=== PATIENT | female | born 1960 | race Caucasian/White ===

== ENCOUNTER → 2016-11-26 16:41 | Outpatient (CLI) | payer MEDICAID | END | disposition home or self-care (01) | LOC: D.MAMMO 08:15 | DX: Z12.31 Encounter for screening mammogram for malignant neoplasm of breast (principal) ==

== ENCOUNTER 2016-12-24 10:46 | Day surgery (SDC) | payer MEDICAID ==
[~2016-12-24] VITALS: Ht 157.5 cm; Wt 131.8 kg
[2016-12-24] MEDS ORDERED: HCTZ25 MG PO (11:41)
[2016-12-24] MEDS ORDERED: CELEXA20 MG PO (11:42)
[2016-12-24] MEDS ORDERED: MINOCIN100 MG PO (11:42)
[2016-12-24] MEDS ORDERED: ADIPEX-P37.5 M1 PO (11:43)
[2016-12-24] MEDS ORDERED: ZANTAC150 MG PO (11:43)
[2016-12-24] MEDS ORDERED: VITAMIN D250000 UNIT PO (11:43)
[2016-12-24] MEDS ORDERED: VICTOZA0.6 MG/0.1 SQ (11:44)
[2016-12-24] MEDS ORDERED: NAPROSYN500 MG PO (11:44)
[2016-12-24 11:45] VITALS: BP 119/75; Ht 157.5 cm; Wt 131.8 kg
[2016-12-24] MEDS ORDERED: PROPRANOLOL HCL20 MG PO (11:57)
== END 2016-12-24 15:05 | disposition home or self-care (01) ==
LOC: D.OPS 10:46
DX: Z12.11 Encounter for screening for malignant neoplasm of colon (principal); J45.909 Unspecified asthma, uncomplicated; I10 Essential (primary) hypertension; K21.9 Gastro-esophageal reflux disease without esophagitis; E66.01 Morbid (severe) obesity due to excess calories; Z68.43 Body mass index [BMI] 50.0-59.9, adult; Z01.812 Encounter for preprocedural laboratory examination

== ENCOUNTER → 2017-02-22 16:43 | Outpatient (CLI) | payer MEDICAID ==
[2016-12-24 11:45] VITALS: BMI 53.2
[~2017-02-22 16:43] MED LIST: ADIPEX-P37.5 M1 PO; CELEXA20 MG PO; HCTZ25 MG PO; MINOCIN100 MG PO; NAPROSYN500 MG PO; PROPRANOLOL HCL20 MG PO; VICTOZA0.6 MG/0.1 SQ; VITAMIN D250000 UNIT PO; VITAMIN D5000 UNIT PO; XARELTO20 MG PO; ZANTAC150 MG PO
[2017-02-22 17:35] LABS: T4 THYROXINE 7.9 ug/dL (4.7-13.3); THYROID STIMULATING HORMONE 2.03 uIU/mL (0.36-3.74)
== END | disposition home or self-care (01) ==
LOC: D.LABREF 16:43
PROVIDERS: Internal Medicine Cardiovascular Disease
DX: I10 Essential (primary) hypertension (principal); I48.91 Unspecified atrial fibrillation

== ENCOUNTER → 2017-02-23 09:17 | Outpatient (CLI) | payer MEDICAID ==
[2016-12-24 11:45] VITALS: BMI 53.2
--- NOTE | 2017-03-01 09:02 | EC ---
PATIENT:ABDIFATAH WASHINGTON DATE OF SERVICE: 02/23/17 SEX: F MEDICAL RECORD: [id number] DATE OF : 56 LOCATION:D.[facility], LATER [facility] AGE OF PATIENT: 56 ADMISSION DATE: 02/23/17 REFERRING PHYSICIAN: INTERPRETING PHYSICIAN: PRINCESS MCLEOD MD ECHOCARDIOGRAM REPORT ECHO CHARGES 4 ECHO COMPLETE CLINICAL DIAGNOSIS: ATRIAL FIB/HTN/PERICARDIAL PAIN ECHOCARDIOGRAPHIC MEASUREMENTS (adult normal given) AC root (d.<3.7cm) 3.2 cm LV Septum d (<1.2 cm> 1.6 cm Valve Excursion 1.7 cm LV Septum (systole) 1.9 cm Left Atria (s.<4.0cm> 3.5 cm LVPW d(<1.2cm) 1.7 cm RV (d.<2.3cm) 3.9 cm LVPW (sytole) 1.9 cm LV diastole(<5.6CM) 4.1 cm MV E-F(>70mm/sec) cm LV systole 2.6 cm LVOT Diameter 1.8 cm MV exc.(>10mm) 1.8 cm Est.ejection fraction (50-75%) % Pericardial Effusion N DOPPLER: LVIT cm/sec A 130 cm/sec E cm/sec LA cm/sec RVSP 17 mmHg LVOT 96 cm/sec AOP1/2T m/s Asc. Ao 147 cm/sec RVOT 96 cm/sec RA cm/sec PA 138 cm/sec AV Gradient Peak 8.69 mmHg AV Mean 5.00 mmHg AV Area 1.5 cm MV Gradient Peak 10.43mmHg MV Mean 3.84 mmHg MV Area cm COMMENTS: Cnc Mill Set Up Operator: Batsheva GARCIA Glue Specialty Supervisor: Dario Fowler TAPE# PACS DATE OF SERVICE: 02/23/2017 PROCEDURE: Echocardiogram. FINDINGS: 1. Left ventricle chamber size is within normal limits. Left ventricular systolic function is normal. Overall ejection fraction is estimated at 55%. 2. Left atrium is within normal limits at 3.5 cm. Right atrium and right ventricular chamber sizes are mildly dilated. 3. Valvular structures have normal structure and motion. ECHOCARDIOGRAM REPORT [id number] ABDIFATAH WASHINGTON EARL 4. Doppler interrogation only reveals trace mitral regurgitation, trace tricuspid regurgitation. No other valvular insufficiency or stenosis. 5. No evidence of pericardial effusion or left ventricular thrombus. 6. The patient is in atrial flutter during the study. TRANSINT:[id number] Voice Confirmation ID: [id number] DOCUMENT ID: [id number] PRINCESS MCLEOD MD at 0902 CC: [id number] DICTATION DATE: 02/24/17 1119 ETHYLENE PLANT OPERATOR: 02/24/17 1127 DEP CLI 02/23/[address] [address]
== END | disposition home or self-care (01) ==
LOC: D.ECHO 02-22 10:30
DX: I48.91 Unspecified atrial fibrillation (principal); R07.2 Precordial pain; I10 Essential (primary) hypertension

== ENCOUNTER 2017-04-15 07:12 | Outpatient (CLI) | payer MEDICAID ==
[~2017-04-15] VITALS: Ht 157.5 cm; Wt 129.5 kg
--- NOTE | ~2017-04-15 | TEE ---
PATIENT:ABDIFATAH WASHINGTON MEDICAL RECORD: [id number] LOCATION:D.[facility] AGE OF PATIENT: 56 ADMISSION DATE: 04/15/17 SEX: F REFERRING PHYSICIAN: INTERPRETING PHYSICIAN: RADHA LUGO MD TRANSESOPHAGEAL ECHOCARDIOGRAM AKANKSHA CHARGE Y INDICATIONS: AFIB/ ASSESS FOR CLOT PREMEDICATIONS: PATIENT'S RESPONSE PROCEDURE DOPPLER MEASUREMENTS: LVIT LA PA RA LVOT RVOT Asc. Ao AV Gradient Peak AV Mean AV Area MV Gradient Peak MV Mean MV Area INTERPRETATION: Doppler: 2-D: CLOT NOTED IN LA APPENDAGE COLOR FLOW DOPPLER NORMAL SALINE STUDY: MISCELLANOUS: DIAGNOSIS: PLAN: Sports Information Director:Dario Lugo Drafter Commercial: Batsheva GARCIA COMMENTS: DATE OF SERVICE: 04/15/2017 PROCEDURE: Transesophageal echocardiogram. This is also transcribed already on the computer system; however, the AKANKSHA was performed and there was left atrial appendage thrombus seen. Please see the online report for full details. TRANSINT:[id number] Voice Confirmation ID: [id number] DOCUMENT ID: [id number] TRANSESOPHAGEAL ECHOCARDIOGRAM REPORT [id number] ABDIFATAH WASHINGTON at 1038 CC: [id number] DICTATION DATE: 04/16/17 0840 PROPOSAL DEVELOPMENT MANAGER: 04/16/17 1214 [facility] CLI 04/15/17 [place] [place] [address]
--- NOTE | ~2017-04-15 | HEMODYNAMI ---
PATIENT:ABDIFATAH WASHINGTON MEDICAL RECORD: [id number] : 56 LOCATION:D.[facility] ADMISSION DATE: 04/15/17 Generatedon:04/15/201710:02 Patient name: ABDIFATAH WASHINGTON Patient #: [id number] SSN: : 1960 Date of study: 04/15/2017 Page: Of Hemodynamic Procedure Report Patient Data Patient Demographics Procedure consent was obtained First Name: ABDIFATAH Gender: Female Last Name: PADMINI : 1960 [facility] Initial: EARL Age: 56 year(s) Patient #: [id number] Race: Unknown Additional ID: [id number] Contact details [address]: [address] [place] [address] State: [place] City: [place] Zip code: [address] Past Medical History Allergies: No known allergies Admission Admission Data Admission Date: 04/15/2017 Admission Time: 7:12 Procedure Procedure Types Cath Procedure Diagnostic Procedure AKANKSHA Procedure Description Procedure Date Procedure Date: 04/15/2017 Procedure Start Time: 9:24 Procedure Staff Name Function Virgil Fowler MD Performing Physician Melba Manjarrez RT Monitor Aman Palmer RN Nurse Rainer Gama MD Additional personnel Won Olmedo Handicrafts Teacher Nieves Guerrier RT Fountain Clerk Procedure Data Procedure Complications No complications Procedure Medications Medication Administration Route Dosage 0.9% NaCl I.V. 100 ml/hr Oxygen NC 3 l/min Refer to Anesthesia Notes for Sedation Medications unlisted medication 30 ml unlisted medication Hemodynamics Rest Heart Rate: 93 (bpm) Snapshots Pre Cath Intra NCS Post Cath Vital Signs Time Heart Resp SPO2 etCO2 NIBP (mmHg) Rhythm Pain Sedation Rate (ipm) (%) (mmHg) Status Level (bpm) 9:51:50 98 12 100 30.5 122/90(108) NSR 0 (11) 10(A) , No pain 9:55:27 84 10 98 36.5 143/92(109) NSR 0 (11) 9(A) , No pain 9:57:28 82 31 100 36.5 138/79(106) NSR 0 (11) 10(A) , No pain Medications Time Medication Route Dose Verified Delivered Reason Notes Effectivene ss by by 9:51:21 Refer to Aman Newton for Anesthesia Spencer Palmer sedation Notes for RN RN Sedation Medications 9:52:07 0.9% NaCl I.V. 100 Aman Aman Per ml/hr Spencer flores RN RN 9:52:26 Oxygen NC 3 Aman Aman Per l/min Spencer flores RN RN 9:57:04 maalox p.o. 30 ml Aman Virgil Per Spencer Fowler MD physician SACHIN 9:57:50 viscois Aman Virgil Per lidocaine Spencer Fowler MD physician technical support technician Log Time Note 9:20:34 Aman Palmer RN sent for patient. Start room use. 9:31:39 Time tracking: Regular hours 9:31:43 Plan of Care:Hemodynamics will remain stable., Cardiac rhythm will remain stable., Comfort level will be maintained., Respiratory function will remain adequate., Patient/ family verbilizes understanding of procedure., Procedure tolerated without complication., Recovers from procedure without complications.. 9:31:48 Patient received from Pre/Post Procedure Room to CCL 3 Alert and oriented. Tansferred to table in Supine position. 9:31:49 Warm blankets applied, and linda hugger turned on for patient comfort. 9:31:49 Correct patient and procedure confirmed by team. 9:31:50 Signed procedure consent form obtained from patient. 9:31:51 ECG and BP/O2 sat monitors applied to patient. 9:31:52 Full Disclosure recording started 9:35:25 H&P Date Dictated: 04/12/2017 Within 30 days and on chart., H&P Addendum completed by physician on day of procedure. (MUST COMPLETE FOR ALL OUTPATIENTS). 9:35:26 Pre-procedure instructions explained to patient. 9:35:27 Pre-op teaching completed and patient verbalized understanding. 9:35:29 Family in waiting room. 9:35:30 Patient NPO since Midnight. 9:35:38 Patient allergic to No known allergies 9:37:29 Is the patient allergic to Iodine/contrast media? No. 9:38:12 Is patient on blood thinner?Yes 9:38:20 ACC The patient was administered the following blood thiners within the last 24 hours: Xarelto 9:40:06 Patient diabetic? No. 9:40:12 ----Pre-sedation anethsthesia assessment.---- 9:40:25 SEE ANESTHESIA NOTE FOR ASSESSMENT 9:40:30 Patient pain scale 0/10 ?. 9:40:38 IV patent on arrival in right forearm with 0.9% NaCl at KVO. 9:40:44 Lab results completed and on chart. 9:40:49 Alarms reviewed by RJoselin NJoselin 9:41:05 Quick Combo opened to sterile field. 9:41:11 Quick combo pads placed on patients chest and back. 9:44:11 Rainer Gama MD present and monitoring patient for TIVA. 9:45:01 Final Timeout: patient, procedure, and site verified with staff and physician. All members of the team are in agreement. 9:45:11 Physical assessment completed. ASA score P 2 - A patient with mild systemic disease as per Virgil Fowler MD. 9:45:19 Sedation plan: TIVA Medication:Propofol 9:49:57 Won Olmedo Medical Parasitologist present for AKANKSHA. 9:50:34 Vital chart was started 9:50:38 Rhythm: atrial fibrillation 9:51:21 Refer to Anesthesia Notes for Sedation Medications was administered by Aman Palmer RN; for sedation; 9:51:30 AKANKSHA started. 9:52:03 Baseline sample Acquired. 9:52:07 0.9% NaCl 100 ml/hr I.V. was administered by Aman Palmer RN; Per physician; 9:52:26 Oxygen 3 l/min NC was administered by Aman Palmer RN; Per physician; 9:52:41 AKANKSHA completed. 9:52:53 Procedure ended.(Physican Out) 9:53:12 Post procedure rhythm: unchanged. 9:53:19 Post procedure instruction explained to patient.Patient verbalizes understanding. 9:53:19 Patient needs reinforcement of post procedure teaching. 9:54:30 Procedure type changed to Cath procedure, Diagnostic procedure, AKANKSHA 9:54:58 Procedure Complication : No complications 9:55:00 See physician's report for complete and final results. 9:55:01 Procedure and supply charges have been captured, reviewed, submitted and are correct. 9:57:04 maalox 30 ml p.o. was administered by Virgil Fowler MD; Per physician; 9:57:50 viscois lidocaine was administered by Virgil Fowler MD; Per physician; 9:59:17 Vital chart was stopped 9:59:19 Report given to Pre/Post Procedure Room. 9:59:22 Patient transfered to Pre/Post Procedure Room with Stretcher. 9:59:31 End room use (Document Last) Device Usage Item Manufacture Quantity Catalog Hospital Part Current Minimal Lot# / Name Number Charge Number Stock Stock Kali al# Code FAZUA 1 [id number] Combo Signature Audit [place] Stage Time Signature Unsigned Intra-Procedure 04/15/2017 Melba 10:02:10 AM Counts RT(R) Signatures Monitor : Melba Signature : Counts RT Date : Time : [address] [address]
[~2017-04-15 07:12] MED LIST changes: -VITAMIN D5000 UNIT PO; -XARELTO20 MG PO
[2017-04-15] MEDS ORDERED: XARELTO20 MG PO (08:29)
[2017-04-15] MEDS ORDERED: VITAMIN D5000 UNIT PO (08:31)
[2017-04-15 08:49] VITALS: BP 129/76; Ht 157.5 cm; Wt 129.5 kg
[2017-04-15 09:04] LABS: HEMATOCRIT 43.1 % (36.0-48.0); HEMOGLOBIN 13.8 g/dL (12-16); LYMPHOCYTES 23.1 % (15-50); MCH 26.3 pg (26.0-34.0); MCV 82.3 fL (80.0-100.0); MEAN PLATELET VOLUME 9.2 fL (7.4-10.4); NEUTROPHILS 71.6 % (40-80); PLATELET COUNT 201 10x3/uL (130-400); RBC 5.24 10x6/uL (4.00-5.40); RDW 13.4 % (11.5-14.5); WBC 7.9 10x3/uL (4.8-10.8)
[2017-04-15 09:18] LABS: CALC OSMOLALITY 276 mosm/kg (275-300); CARBON DIOXIDE 33.5 mmol/L (21.0-32.0); CHLORIDE - SERUM 104 mmol/L (98-107); CREATININE - SERUM 0.8 mg/dL (0.6-1.3); GLUCOSE 82 mg/dL (74-106); POTASSIUM - SERUM 4.1 mmol/L (3.5-5.1); SODIUM 140 mmol/L (136-145); UREA NITROGEN 11 mg/dL (7-18); eGFR NON AFRICAN AMERICAN 78 mL/min (90-120)
[2017-04-15 09:34] LABS: INR 1.64 (0.85-1.17); PROTIME 18.9 SECONDS (11.6-15.0)
== END 2017-04-15 11:15 | disposition home or self-care (01) ==
LOC: D.CATH 07:12
PROVIDERS: Internal Medicine Cardiovascular Disease
DX: I48.91 Unspecified atrial fibrillation (principal); I10 Essential (primary) hypertension; E66.9 Obesity, unspecified; Z68.43 Body mass index [BMI] 50.0-59.9, adult; Z01.812 Encounter for preprocedural laboratory examination

== ENCOUNTER 2017-08-03 08:11 | Outpatient (CLI) | payer MEDICAID ==
[~2017-08-03] VITALS: Ht 157.5 cm; Wt 129.5 kg
--- NOTE | ~2017-08-03 | HEMODYNAMI ---
PATIENT:ABDIFATAH WASHINGTON MEDICAL RECORD: [id number] : 56 LOCATION:D.CAT ADMISSION DATE: 08/03/17 Generatedon:08/03/201710:21 Patient name: ABDIFATAH WASHINGTON Patient #: [id number] SSN: : 1960 Date of study: 08/03/2017 Page: Of Hemodynamic Procedure Report Patient Data Patient Demographics Procedure consent was obtained First Name: ABDIFATAH Gender: Female Last Name: PADMINI : 1960 [facility] Initial: EARL Age: 57 year(s) Patient #: [id number] Race: Unknown Additional ID: [id number] Contact details Address: [address] [place] [address] State: [place] City: [place] Zip code: [address] Past Medical History Allergies: No known allergies Admission Admission Data Admission Date: 08/03/2017 Admission Time: 8:11 Lab Results Lab Result Date: 08/03/2017 Lab Result Time: 0:00 Biochemistry Name Units Result Min Max BUN mg/dl 15 --(--*-)-- 7 18 Creatinine mg/dl 0.8 --(-*--)-- 0.6 1.3 CBC Name Units Result Min Max Hemoglobin g/dl 14 --(*---)-- 13.5 17.5 Procedure Procedure Types Cath Procedure Diagnostic Procedure Cardioversion External AKANKSHA Procedure Description Procedure Date Procedure Date: 08/03/2017 Procedure Start Time: 10:12 Procedure End Time: 10:21 Procedure Staff Name Function Virgil Fwoler MD Performing Physician Sarbjit Kelly AUTOMATION/CONTROLS MANAGER Additional personnel Geoffrey Newberry RT Monitor Mitzy Humphreys RT Monitor Gareth Chavez RN Nurse Won Olmedo Textile Engineer Procedure Medications Medication Administration Route Dosage Oxygen etCO2 Nasal cannula 6 l/min 0.9% NaCl I.V. 100 ml/hr Refer to Anesthesia Notes for Sedation Medications Hemodynamics Rest Pre Cath Intra NCS Post Cath Vital Signs Time Heart Resp SPO2 etCO2 NIBP (mmHg) Rhythm Pain Sedation Rate (ipm) (%) (mmHg) Status Level (bpm) 10:08:18 65 24 100 33.8 141/92(122) NSR 0 (11) 10(A) , No pain 10:13:07 88 18 100 115/70(100) NSR 0 (11) 10(A) , No pain 10:18:06 71 20 Measuring NSR 0 (11) 10(A) , No pain 10:18:49 74 21 92 143/89(121) NSR 0 (11) 10(A) , No pain Medications Time Medication Route Dose Verified Delivered Reason Notes Effective ness by by 10:11:32 Oxygen etCO2 6 Virgil Gareth Per Nasal l/min Janeth Chavez RN physician cannula 10:11:41 0.9% NaCl I.V. 100 Virgil Gareth Per ml/hr Janeth Chavez RN physician 10:11:48 Refer to Virgil Servin Per Anesthesia Janeth Chavez RN physician Notes for MD Sedation Medications Procedure Log Time Note 9:49:34 Gareth Chavez RN sent for patient. Start room use. 9:49:35 Time tracking: Regular hours (M-F 7:00 - 5:00) 9:49:39 Plan of Care:Hemodynamics will remain stable., Cardiac rhythm will remain stable., Comfort level will be maintained., Respiratory function will remain adequate., Patient/ family verbilizes understanding of procedure., Procedure tolerated without complication., Recovers from procedure without complications.. 9:53:36 Patient allergic to No known allergies 9:53:54 H&P Date Dictated: 08/03/2017 Within 30 days and on chart., H&P Addendum completed by physician on day of procedure. (MUST COMPLETE FOR ALL OUTPATIENTS). 9:54:39 Lab Result : BUN 15 mg/dl 9:54:39 Lab Result : Creatinine 0.8 mg/dl 9:54:39 Lab Result : Hemoglobin 14 g/dl 9:58:32 Patient arrived from Pre/Post Procedure Room to CCL 3. Patient remains on bed/stretcher for procedure. 9:58:33 Warm blankets applied, and linda hugger turned on for patient comfort. 9:58:34 Correct patient and procedure confirmed by team. 9:58:36 Signed procedure consent form obtained from patient. 9:58:37 ECG and BP/O2 sat monitors applied to patient. 9:59:16 Sarbjit Kelly CRNA present and monitoring patient for TIVA. 9:59:21 Won Olmedo Dictaphone Typist present for AKANKSHA. 10:06:39 Vital chart was started 10:06:50 Rhythm: atrial fibrillation 10:06:51 Full Disclosure recording started 10:06:52 Pre-procedure instructions explained to patient. 10:07:02 Pre-op teaching completed and patient verbalized understanding. 10:07:04 Family in patients room. 10:07:06 Patient NPO since Midnight. 10:07:08 Is the patient allergic to Iodine/contrast media? No. 10:07:36 Is patient on blood thinner?Yes 10:07:58 ACC The patient was administered the following blood thiners within the last 24 hours: Xarelto 10:08:01 Patient diabetic? No. 10:08:04 Previous problem with sedation/anesthesia? No ? 10:08:05 Snore? Yes 10:08:06 Sleep apnea? Yes 10:08:07 Deviated septum? No 10:08:08 Opens mouth fully? Yes 10:08:09 Sticks out tongue? Yes 10:08:16 Airway obstruction? Yes Asthma 10:08:19 Dentures? No ? 10:08:22 Patient pain scale 0/10 ?. 10:08:35 IV patent on arrival in right antecubital with 0.9% NaCl at O. 10:08:38 Lab results completed and on chart. 10:08:39 Alarms reviewed by Kelby Cole 10:08:41 Quick Combo opened to sterile field. 10:08:44 Quick combo pads placed on patients chest and back. 10:09:47 --------ALL STOP TIME OUT------ 10:09:48 Final Timeout: patient, procedure, and site verified with staff and physician. All members of the team are in agreement. 10:09:53 Physical assessment completed. ASA score P 3 - A patient with severe systemic disease as per Virgil Fowler MD. 10:09:57 Sedation plan: TIVA Medication:Propofol 10:11:32 Oxygen 6 l/min etCO2 Nasal cannula was administered by Gareth Chavez RN; Per physician; 10:11:41 0.9% NaCl 100 ml/hr I.V. was administered by Gareth Chavez RN; Per physician; 10:11:48 Refer to Anesthesia Notes for Sedation Medications was administered by Gareth Chavez RN; Per physician; 10:12:36 Procedure started. 10:12:40 AKANKSHA started. 10:14:08 AKANKSHA completed. 10:14:12 Defibrillator synced and charged to 200 Joules. 10:14:21 Shock delivered. 10:14:59 Defibrillator synced and charged to 300 Joules. 10:15:09 Shock delivered. 10:15:22 Patient cardioverted to sinus rhythm . 10:15:33 Procedure ended.(Physican Out) 10:15:55 Sharps counted by scrub and verified by R.N. 10:16:04 Post-procedure physical assessment completed. ASA score P 3 - A patient with severe systemic disease as per Virgil Fowler MD. 10:16:09 Post procedure rhythm: sinus rhythm 10:16:13 Post procedure instruction explained to patient.Patient verbalizes understanding. 10:16:14 Patient needs reinforcement of post procedure teaching. 10:16:26 Procedure type changed to Cath procedure, Diagnostic procedure, Cardioversion External, AKANKSHA 10:19:23 Procedure and supply charges have been captured, reviewed, submitted and are correct. 10:20:57 Vital chart was stopped 10:20:57 See physician's report for complete and final results. 10:20:59 Report given to Pre/Post Procedure Room. 10:21:03 Patient transfered to Pre/Post Procedure Room with Bed. 10:21:04 Procedure ended. 10:21:04 Full Disclosure recording stopped 10:21:07 End room use (Document Last) Device Usage Item Manufacture Quantity Catalog Hospital Part Current Minimal Lot# / Name Number Charge Number Stock Leanne Bass al# Code Jawbone 1 [id number] Combo Signature Audit [place] Stage Time Signature Unsigned Intra-Procedure 08/03/2017 Mitzy Humphreys 10:21:50 AM RT(R) Signatures Monitor : Geoffrey Newberry RT Signature : Date : Time : Monitor : Mitzy Humphreys Signature : RT Date : Time : [address] [place] [address]
[~2017-08-03 08:11] MED LIST changes: +VITAMIN D5000 UNIT PO; +XARELTO20 MG PO
[2017-08-03] MEDS ORDERED: TOPROL XL50 MG PO (08:44)
[2017-08-03 08:53] VITALS: BP 173/77; Ht 157.5 cm; Wt 129.5 kg
[2017-08-03 09:10] LABS: BASOPHILS 0.1 % (0-2); EOSINOPHILS 2.4 % (0-7); HEMATOCRIT 43.5 % (36.0-48.0); IMMATURE GRANULOCYTES 0.1 % (0-5); LYMPHOCYTES 20.1 % (15-50); MCHC 32.2 g/dL (31.0-37.0); MCV 83.8 fL (80.0-100.0); MEAN PLATELET VOLUME 10.1 fL (7.4-10.4); MONOCYTES 5.6 % (2-11); NEUTROPHILS 71.7 % (40-80); PLATELET COUNT 205 10x3/uL (130-400); RBC 5.19 10x6/uL (4.00-5.40); RDW 13.8 % (11.5-14.5); WBC 7.5 10x3/uL (4.8-10.8)
[2017-08-03 09:17] LABS: INR 1.56 (0.85-1.17); PROTIME 18.1 SECONDS (11.6-15.0)
[2017-08-03 09:28] LABS: CALC OSMOLALITY 284 mosm/kg (275-300); CALCIUM 8.8 mg/dL (8.5-10.1); CARBON DIOXIDE 28.3 mmol/L (21.0-32.0); CHLORIDE - SERUM 105 mmol/L (98-107); CREATININE - SERUM 0.8 mg/dL (0.6-1.3); GLUCOSE 82 mg/dL (74-106); POTASSIUM - SERUM 3.9 mmol/L (3.5-5.1); SODIUM 143 mmol/L (136-145); UREA NITROGEN 15 mg/dL (7-18); eGFR NON AFRICAN AMERICAN 78 mL/min (90-120)
== END 2017-08-03 12:00 | disposition home or self-care (01) ==
LOC: D.CATH 08:11
PROVIDERS: Internal Medicine Cardiovascular Disease
DX: I48.91 Unspecified atrial fibrillation (principal); I10 Essential (primary) hypertension; J45.909 Unspecified asthma, uncomplicated; F90.9 Attention-deficit hyperactivity disorder, unspecified type; Z79.01 Long term (current) use of anticoagulants; Z79.899 Other long term (current) drug therapy; Z01.812 Encounter for preprocedural laboratory examination

== ENCOUNTER → 2017-08-16 19:56 | Outpatient (CLI) | payer MEDICAID ==
[2017-08-03 08:53] VITALS: BMI 52.2
[~2017-08-16 19:56] MED LIST changes: +TOPROL XL50 MG PO
== END | disposition home or self-care (01) ==
LOC: D.SLEEP 08:00
DX: G47.10 Hypersomnia, unspecified (principal)

== ENCOUNTER 2017-11-15 19:00 | Outpatient (CLI) | payer MEDICAID ==
[2017-08-03 08:53] VITALS: BMI 52.2
== END 2017-11-15 23:59 | disposition home or self-care (01) ==
LOC: D.MAMMO 19:00
DX: Z12.31 Encounter for screening mammogram for malignant neoplasm of breast (principal)

== ENCOUNTER 2019-01-04 11:30 | Outpatient (CLI) | payer OTHER ==
[2017-08-03 08:53] VITALS: BMI 52.2
== END 2019-01-04 12:00 | disposition home or self-care (01) ==
LOC: D.MAMMO 11:30
PROVIDERS: ATTEND Family Medicine
DX: Z12.31 Encounter for screening mammogram for malignant neoplasm of breast (principal)

== ENCOUNTER 2019-04-28 10:16 | Outpatient (CLI) | payer OTHER ==
[~2019-04-28] VITALS: Ht 157.5 cm; Wt 136.4 kg
--- NOTE | ~2019-04-28 | HEMODYNAMI ---
PATIENT:ABDIFATAH WASHINGTON MEDICAL RECORD: [id number] : 56 LOCATION:[facility] ADMISSION DATE: 04/28/19 Generatedon:04/28/201912:26 Patient name: ABDIFATAH WASHINGTON Patient #: [id number] SSN: : 1960 Date of study: 04/28/2019 Page: Of Hemodynamic Procedure Report Patient Data Patient Demographics Procedure consent was obtained First Name: ABDIFATAH Gender: Female Last Name: PADMINI : 1960 [facility] Initial: EARL Age: 58 year(s) Patient #: [id number] Race: Unknown Additional ID: [id number] Contact details Address: [address] [place] [address] State: [place] City: [place] Zip code: [address] Past Medical History Allergies: No known allergies Admission Admission Data Admission Date: 04/28/2019 Admission Time: 10:16 Arrival Date: 04/28/2019 Arrival Time: 0:00 Height (in.): 62 BSA: 2.29 (m2) Height (cm.): 157.48 BMI: 55.78 (kg/m2) Weight (lbs.): 305 Weight (kg.): 138.35 Lab Results Lab Result Date: 04/28/2019 Lab Result Time: 0:00 Biochemistry Name Units Result Min Max BUN mg/dl 20 --(----)*- 7 18 Creatinine mg/dl 0.9 --(-*--)-- 0.6 1.3 eGFR ml/min 67.85558 *-(----)-- 90 120 NONAFRICAN CBC Name Units Result Min Max Hematocrit % 41.3 -*(----)-- 42 54 Hemoglobin g/dl 13.2 -*(----)-- 13.5 17.5 Procedure Procedure Types Cath Procedure Diagnostic Procedure Cardioversion External Procedure Description Procedure Date Procedure Date: 04/28/2019 Procedure Start Time: 12:13 Procedure End Time: 12:23 Procedure Staff Name Function Joaquim Lynn LINE CREWMAN Additional personnel Ricardo Menezes MD Performing Physician Tiki Smalls RT Monitor Aman Palmer RN Nurse Mitzy Humphreys RT Scrub Indication Atrial fibrillation Procedure Data Procedure Complications No complications Procedure Medications Medication Administration Route Dosage 0.9% NaCl I.V. 100 ml/hr Oxygen etCO2 Nasal cannula 5 l/min Refer to Anesthesia Notes for Sedation Medications Hemodynamics Rest BSA: 2.29 (m2) HGB: 13.2 (g/dl) O2 Consumption: Estimated: 211.54 (ml/min) O2 Consumption indexed: Estimated:92.38 (ml/min/m) Heart Rate: 64 (bpm) Snapshots Pre Cath Intra NCS Post Cath Vital Signs Time Heart Resp SPO2 etCO2 NIBP (mmHg) Rhythm Pain Sedation Rate (ipm) (%) (mmHg) Status Level (bpm) 12:03:56 71 15 98 0 124/75(112) NSR 0 (11) 10(A) , No pain 12:08:12 68 16 100 18.7 105/86(97) NSR 0 (11) 10(A) , No pain 12:12:33 72 15 100 0 83/60(82) NSR 0 (11) 10(A) , No pain 12:17:30 66 13 100 0 134/70(99) NSR 0 (11) 8(A) , No pain 12:21:54 56 21 98 32.2 109/57(83) NSR 0 (11) 8(A) , No pain Medications Time Medication Route Dose Verified Delivered Reason Notes Effective ness by by 12:05:47 0.9% NaCl I.V. 100 Aman Aman Per ml/hr Spencer Palmer physician RN RN 12:06:00 Oxygen etCO2 5 Aman Aman for low Nasal l/min Spencer Palmer 02 sats cannula RN RN 12:15:38 Refer to Aman Newton for Anesthesia Spencer Palmer sedation Notes for RN RN Sedation Medications Procedure Log Time Note 11:49:03 Informed consent obtained and on chart 11:50:08 Lab Result : Hemoglobin 13.2 g/dl 11:50:08 Lab Result : Hematocrit 41.3 % 11:50:08 Lab Result : eGFR NONAFRICAN 67.30965 ml/min 11:50:08 Lab Result : BUN 20 mg/dl 11:50:08 Lab Result : Creatinine 0.9 mg/dl 11:50:28 Procedure Status Cardioversion. 11:52:02 Indication : Atrial fibrillation 11:52:16 Aman Palmer RN sent for patient. Start room use. 11:52:19 Time tracking: Regular hours (M-F 7:00 - 5:00) 11:52:27 Plan of Care:Hemodynamics will remain stable., Cardiac rhythm will remain stable., Comfort level will be maintained., Respiratory function will remain adequate., Patient/ family verbilizes understanding of procedure., Procedure tolerated without complication., Recovers from procedure without complications.. 11:53:52 Patient allergic to No known allergies 11:55:51 H&P Date Dictated: 04/12/2019 Within 30 days and on chart., H&P Addendum completed by physician on day of procedure. (MUST COMPLETE FOR ALL OUTPATIENTS). 11:56:00 Patient Weight : 305 lbs 11:56:04 Patient Height : 62 inches 11:56:06 Arrival Date: 04/28/2019 12:00:00 AM 11:57:12 Patient arrived from Pre/Post Procedure Room to CCL 1. Patient remains on bed/stretcher for procedure. 11:57:13 ECG and BP/O2 sat monitors applied to patient. 11:57:13 Correct patient and procedure confirmed by team. 11:57:13 Warm blankets applied, and linda hugger turned on for patient comfort. 12:00:21 Previous problem with sedation/anesthesia? No ? 12:00:23 ----Pre-sedation anethsthesia assessment.---- 12:00:26 Snore? Yes 12:00:30 Sleep apnea? Yes 12:00:33 Deviated septum? No 12:00:35 Opens mouth fully? Yes 12:00:37 Sticks out tongue? Yes 12:00:57 Airway obstruction? Yes CPAP WITH 2L OF O2 12:01:02 Dentures? No ? 12:01:16 Vital chart was started 12:01:22 Baseline sample Acquired. 12:01:40 Rhythm: atrial fibrillation 12:01:42 Full Disclosure recording started 12:01:43 - 12:01:54 Family unavailable. 12:01:58 Patient NPO since Midnight. 12:02:24 Is patient on blood thinner?Yes 12:02:32 ACC The patient was administered the following blood thiners within the last 24 hours: Xarelto 12:03:01 XARELTO WAS 04-27-2019. 12:05:11 Patient diabetic? No. 12:05:16 Patient not . Patient is over age 55. 12:05:38 IV patent on arrival in right antecubital with 0.9% NaCl at [facility]. 12:05:44 Lab results completed and on chart. 12:05:47 0.9% NaCl 100 ml/hr I.V. was administered by Aman Palmer RN; Per physician; Verbal order read back and verified. 12:05:59 Joaquim Lynn Jr LINE CREWMAN present and monitoring patient for TIVA. 12:06:00 Oxygen 5 l/min etCO2 Nasal cannula was administered by Aman Palmer RN; for low 02 sats; Verbal order read back and verified. 12:06:27 Quick Combo opened to sterile field. 12:08:32 Physician arrived 12:08:34 --------ALL STOP TIME OUT------ 12:08:37 Final Timeout: patient, procedure, and site verified with staff and physician. All members of the team are in agreement. 12:08:46 Physical assessment completed. ASA score P 2 - A patient with mild systemic disease as per Ricardo Menezes MD. 12:08:55 Sedation plan: TIVA Medication:Propofol 12:13:50 Procedure started. 12:15:38 Refer to Anesthesia Notes for Sedation Medications was administered by Aman Palmer RN; for sedation; Verbal order read back and verified. 12:18:03 ------Cardioversion------ 12:18:55 Quick combo pads placed on patients chest and back. 12:19:06 Defibrillator synced and charged to 275 Joules. 12:19:09 Shock delivered. 12:19:23 Patient cardioverted to sinus bradycardia. 12:19:29 Procedure ended.(Andrea Out) 12:20:08 Post-procedure physical assessment completed. ASA score P 2 - A patient with mild systemic disease as per Ricardo Menezes MD. 12:20:18 Post procedure rhythm: sinus bradycardia 12:20:21 Post procedure instruction explained to patient.Patient verbalizes understanding. 12:20:22 Patient needs reinforcement of post procedure teaching. 12:20:34 Procedure and supply charges have been captured, reviewed, submitted an d are correct. 12:21:06 Procedure Complication : No complications 12:21:26 Operative report dictated upon procedure completion. 12:21:27 See physician's report for complete and final results. 12:23:27 Vital chart was stopped 12:23:32 Report given to Pre/Post Procedure Room. 12:23:36 Patient transfered to Pre/Post Procedure Room with Stretcher. 12:23:42 Full Disclosure recording stopped 12:23:42 Procedure ended. 12:23:44 End room use (Document Last) Device Usage Item Manufacture Quantity Catalog Hospital Part Current Minimal Lot# / Name Number Charge Number Stock Stock Seri al# Code [id number] 1 [id number] Combo Signature Audit [place] Stage Time Signature Unsigned Intra-Procedure 04/28/2019 Tiki 12:24:28 PM Serina RT(R) (CV) Intra-Procedure 04/28/2019 Aman 12:24:58 PM Spencer STEPHENSON Intra-Procedure 04/28/2019 Ricardo Menezes 12:26:49 PM [id number] [place] [address]
[2019-04-28] MEDS ORDERED: PEPCID40 MG PO (10:38)
[2019-04-28] MEDS ORDERED: BETAPACE 80 MG80 MG PO (10:39)
[2019-04-28 10:57] VITALS: BP 136/81; Ht 157.5 cm; Wt 136.4 kg
[2019-04-28 11:13] LABS: BASOPHILS 0.1 % (0-2); EOSINOPHILS 2.3 % (0-7); HEMATOCRIT 41.3 % (36.0-48.0); HEMOGLOBIN 13.2 g/dL (12-16); IMMATURE GRANULOCYTES 0.3 % (0-5); INR 2.2 (0.85-1.17); LYMPHOCYTES 19.6 % (15-50); MCV 84.6 fL (80.0-100.0); MEAN PLATELET VOLUME 9.9 fL (7.4-10.4); MONOCYTES 7.2 % (2-11); NEUTROPHILS 70.5 % (40-80); PLATELET COUNT 221 10x3/uL (130-400); PROTIME 24.1 SECONDS (11.6-15.0); RBC 4.88 10x6/uL (4.00-5.40); RDW 13.9 % (11.5-14.5); WBC 6.8 10x3/uL (4.8-10.8)
[2019-04-28 11:14] LABS: ANION GAP 9.2 mmol/L (8-16); CALCIUM 8.3 mg/dL (8.5-10.1); CARBON DIOXIDE 31.6 mmol/L (21.0-32.0); CREATININE - SERUM 0.9 mg/dL (0.6-1.3); POTASSIUM - SERUM 3.8 mmol/L (3.5-5.1)
--- NOTE | 2019-04-28 12:33 | NUR ---
PT ARRIVED BY STRETCHER. PLACED ON MONITORS. ASSESSMENT COMPLETED. VSS. NO FAMILY AT BEDSIDE AT THIS TIME.
--- NOTE | 2019-04-28 12:48 | NUR ---
PT RESTING COMFORTABLY. VSS. PT IN SINUS BRADYCARDIA. NO NEEDS AT THIS TIME. WILL CONTINUE TO MONITOR. CALLED PT'S FAMILY AND NOTIFIED THEM OF DISCHARGE TIME. THEY VOICED UNDERSTANDING.
--- NOTE | 2019-04-28 13:20 | NUR ---
PT EATING SANDWICH AND DRINKING. DENIES NAUSEA. PIV D/C'D WITH CATH TIP INTACT. PT TOLERATED WELL. VSS. PT IN SINUS BRADYCARDIA. INSTRUCTED TO GET UP AND DRESSED. NO ASSISTANCE NEEDED AT THIS TIME.
--- NOTE | 2019-04-28 13:25 | NUR ---
DISCUSSED DISCHARGE INSTRUCTIONS WITH PT. SHE VOICED UNDERSTANDING.
--- NOTE | 2019-04-28 13:30 | NUR ---
PT AMBULATED TO RESTROOM. VOIDED WITHOUT DIFFICULTY. TAKEN OUT TO VEHICLE BY WHEELCHAIR. NO S/S OF DISTRESS NOTED. ALL BELONGINGS AND PAPERWORK IN HAND.
--- NOTE | 2019-05-02 11:24 | OP ---
PATIENT NAME: ABDIFATAH WASHINGTON MEDICAL RECORD: [id number] :56 LOCATION:D.CAT ADMISSION DATE: SURGEON: PRINCESS MCLEOD MD DATE OF OPERATION: 04/28/2019 PROCEDURE: DC cardioversion. INDICATION: Atrial fibrillation. PROCEDURE IN DETAIL: IV conscious sedation was per anesthesia. Continuous heart rate, O2 saturation, blood pressure monitoring all undertaken, all of which remained stable. She received 1 shock at 275 joules restoring sinus rhythm. OVERALL IMPRESSION: Successful DC cardioversion from atrial fibrillation to sinus rhythm. TRANSINT:[id number] Voice Confirmation ID: [id number] DOCUMENT ID: [id number] PRINCESS MCLEOD MD at 1124 CC: [id number] DICTATION DATE: 04/28/19 1221 ALIGNER TYPEWRITER: 04/28/19 1333 DEP CLI 04/28/19 [id number] [place] [address]
== END 2019-04-28 13:30 | disposition home or self-care (01) ==
LOC: D.CATH 10:16
PROVIDERS: ATTEND Internal Medicine Interventional Cardiology
DX: I48.91 Unspecified atrial fibrillation (principal); I10 Essential (primary) hypertension; J45.909 Unspecified asthma, uncomplicated; K21.9 Gastro-esophageal reflux disease without esophagitis; R06.09 Other forms of dyspnea

== ENCOUNTER 2020-09-04 13:10 | Inpatient (IN) | payer OTHER ==
[~2020-09-04] VITALS: Ht 157.5 cm; Wt 136.4 kg
--- NOTE | ~2020-09-04 | EC ---
PATIENT:ABDIFATAH WASHINGTON DATE OF SERVICE: 09/04/20 SEX: F MEDICAL RECORD: [id number] DATE OF : 56 LOCATION:D. D.212 AGE OF PATIENT: 60 ADMISSION DATE: 09/04/20 REFERRING PHYSICIAN: INTERPRETING PHYSICIAN: SAVANNAH MONTOYA MD ECHOCARDIOGRAM REPORT ECHO CHARGES 4 ECHO COMPLETE Date: 09/06/20 CLINICAL DIAGNOSIS: ATRIAL FIB ECHOCARDIOGRAPHIC MEASUREMENTS (adult normal given) AC root (d.<3.7cm) 3.1 cm LV Septum d (<1.2 cm> 1.0 cm Valve Excursion 1.7 cm LV Septum (systole) 1.6 cm Left Atria (s.<4.0cm> 4.6 cm LVPW d(<1.2cm) 1.0 cm RV (d.<2.3cm) 3.7 cm LVPW (sytole) 1.6 cm LV diastole(<5.6CM) 5.5 cm MV E-F(>70mm/sec) cm LV systole 3.0 cm LVOT Diameter 2.1 cm MV exc.(>10mm) cm Est.ejection fraction (50-75%) 55 % DOPPLER: LVIT cm/sec A cm/sec E cm/sec LA cm/sec RVSP 21 mmHg LVOT 137 cm/sec AOP1/2T m/s Asc. Ao 179 cm/sec RVOT 86 cm/sec RA cm/sec PA 90 cm/sec AV Gradient Peak 12 mmHg AV Mean 7 mmHg AV Area 3.2 cm MV Gradient Peak mmHg MV Mean mmHg MV Area cm COMMENTS: Construction Checker: Vivienne HAWTHORNE Quality Control Inspector Heading: 3 Dr. Saldaña TAPE# Pericardial Effusion N DATE OF SERVICE: Adequate 2D, color flow imaging, spectral Doppler, and M-Mode. FINDINGS: No LVH. LV internal dimensions are normal. Wall motion is normal. EF is greater than or equal to 55%. Aortic valve is tricuspid. No evidence of stenosis by Doppler interrogation. Left atrium is mildly dilated at 4.6 cm. Mitral valve shows no prolapse. Trivial MR. Right side is grossly normal. Trivial TR. ECHOCARDIOGRAM REPORT [id number] ABDIFATAH WASHINGTON TRANSINT:[id number] Voice Confirmation ID: [id number] DOCUMENT ID: [id number] SAVANNAH MONTOYA MD CC: [id number] DICTATION DATE: 09/09/20 1103 NON PROFIT DIRECTOR: 09/09/201938 DIS IN 09/07/[address] [facility] [address] [id number]
[~2020-09-04 13:10] MED LIST changes: +BETAPACE 80 MG80 MG PO; +PEPCID40 MG PO
--- NOTE | 2020-09-04 13:49 | NUR ---
URINE SPECIMEN TO LAB
[2020-09-04 14:12] LABS: EOSINOPHILS 2.6 % (0-7); MEAN PLATELET VOLUME 7.8 fL (7.4-10.4); WBC 6.6 10x3/uL (4.8-10.8)
[2020-09-04 14:14] LABS: BASOPHILS 0.9 % (0-2); HEMATOCRIT 21.5 % (36.0-48.0); MCH 26.2 pg (26.0-34.0); MCHC 32.9 g/dL (31.0-37.0); MCV 79.6 fL (80.0-100.0); MONOCYTES 5.4 % (2-11); NEUTROPHILS 67.1 % (40-80); PLATELET COUNT 237 10x3/uL (130-400); RDW 14.9 % (11.5-14.5)
[2020-09-04 14:21] LABS: CALC OSMOLALITY 273 mosm/kg (275-300); CALCIUM 8.6 mg/dL (8.5-10.1); CARBON DIOXIDE 30.6 mmol/L (21.0-32.0); CHLORIDE - SERUM 102 mmol/L (98-107); CREATININE - SERUM 1.2 mg/dL (0.6-1.3); GLUCOSE 98 mg/dL (74-106); POTASSIUM - SERUM 3.4 mmol/L (3.5-5.1); SODIUM 136 mmol/L (136-145); UREA NITROGEN 19 mg/dL (7-18); eGFR NON AFRICAN AMERICAN 48 mL/min (90-120)
[2020-09-04 14:26] LABS: INR 2.54 (0.85-1.17); PROTIME 25.4 SECONDS (11.6-15.0)
[2020-09-04 14:28] LABS: HEMOGLOBIN 7.1 g/dL (12-16)
[2020-09-04 14:38] LABS: ALKALINE PHOSPHATASE 112 U/L (30-120); ALT (SGPT) 27 U/L (10-68); BILIRUBIN - TOTAL 0.29 mg/dL (0.2-1.3); CKMB 2.1 U/L (0.0-3.6); CREATINE KINASE 86 UL (21-215); PRO BNP 1260 pg/mL (0-125); PROTEIN - SERUM 6.2 g/dL (6.4-8.2); TROPONIN-I < 0.017 ng/mL (0.000-0.060)
--- NOTE | 2020-09-04 19:30 | NUR ---
REPORT RECEIVED. PT A&O, UP IN BEDSIDE CHAIR WITH SISTER, VINCENT IN ROOM. NO S/S OF DISTRESS OBSERVED. RR EVEN & UNLABORED ON RA. IV TO RFA INFUSING UNIT OF BLOOD. WILL RESTART CARDIZEM WHEN BLOOD FINISHES. CAF 84 ON TELE. BED LOCKED AND LOWERED, CL IN REACH. ASSESSMENT COMPLETE. WILL CONT POC.
[2020-09-04] MEDS ORDERED: XANAX0.25 MG PO (21:37)
[2020-09-05] VITALS (7 sets, daily range): BP systolic 95–118; BP diastolic 50–72; Ht 157.5 cm; Wt 136.4 kg
[2020-09-05 07:19] LABS: BASOPHILS 0.9 % (0-2); EOSINOPHILS 2.1 % (0-7); HEMATOCRIT 24.2 % (36.0-48.0); HEMOGLOBIN 7.7 g/dL (12-16); LYMPHOCYTES 22.2 % (15-50); MCH 25.6 pg (26.0-34.0); MCHC 31.6 g/dL (31.0-37.0); MCV 80.9 fL (80.0-100.0); MONOCYTES 6.3 % (2-11); NEUTROPHILS 68.5 % (40-80); PLATELET COUNT 225 10x3/uL (130-400); RDW 15.2 % (11.5-14.5); WBC 6.8 10x3/uL (4.8-10.8)
[2020-09-05 07:37] LABS: ALBUMIN 2.7 g/dL (3.4-5.0); ANION GAP 10.6 mmol/L (8-16); BILIRUBIN - TOTAL 0.25 mg/dL (0.2-1.3); CALCIUM 8.1 mg/dL (8.5-10.1); CARBON DIOXIDE 29.9 mmol/L (21.0-32.0); CREATININE - SERUM 1.1 mg/dL (0.6-1.3); MAGNESIUM - SERUM 1.8 mg/dL (1.8-2.4); POTASSIUM - SERUM 3.5 mmol/L (3.5-5.1); PROTEIN - SERUM 5.3 g/dL (6.4-8.2)
--- NOTE | 2020-09-05 13:41 | MORECARE ---
CASE MANAGEMENT DISCHARGE SUMMARY PATIENT: ABDIFATAH WASHINGTON UNIT: [id number] ADM DATE: 09/04/20 AGE: 60 : 56 SEX: F ROOM/BED: D.2123 AUTHOR: RAQUEL,DOC PHYSICIAN: REFERRING PHYSICIAN: PENG CACERES MD DATE OF SERVICE: 09/05/20 Case Management Discharge Planning Summary COMMENTS ENTERED DATE: 09/05/20 13:32 CT COMMENT TYPE: Discharge Planning REVIEWER: Ayleen Lui CM informed to initiate request for Transfer to outside hospital for CUSTODIAL FOREMAN/ONC. Spoke with SALEEM Ellison, about transfer. States he has discussed this at length with patient and she is aware. CM called [facility] about transfer. Faxed face sheet as requested. Awaiting determination. Scot informed CM that [facility] just called him about patient and states they would put her on the list for transfer but they don't have any beds at this time. DCP REVIEW SUMMARY ANTICIPATED D/C DATE: EXPECTED LOS : CASE STATUS: DCP Initiated INITIAL REVIEW: 09/04/2020 INITIAL REVIEWER: Ayleen Lui FINAL DISCHARGE DISPOSITION: : FINAL REVIEWER: FINAL REVIEW DATE: DCP Focus Questions & Answers QUESTION: ANSWER : PATIENT: ABDIFATAH WASHINGTON ENCOUNTER: [id number] MEDICAL RECORD#: [id number] ADMISSION DATE: 09/04/2020 DISCHARGE DATE: ATTENDING MD: PENG WALLER : AGE: 60 MARITAL STATUS: D DC PLAN ID: [id number] FACILITY: [facility] PRINTED ON: 09/05/20 13:41 CT All edits/amendments must be made on the electronic document DICTATION DATE: 09/05/20 1341 MARKETING TECHNOLOGY COORDINATOR: DM 09/05/20 1341 RPT#: [id number] DC DATE: STATUS: ADM IN [facility] [address] [place] [address] END OF REPORT
--- NOTE | 2020-09-05 13:56 | MORECARE ---
CASE MANAGEMENT DISCHARGE SUMMARY PATIENT: ABDIFATAH WASHINGTON UNIT: [id number] ADM DATE: 09/04/20 AGE: 60 : 56 SEX: F ROOM/BED: D.2123 AUTHOR: WILLIAM GARCÍA PHYSICIAN: REFERRING PHYSICIAN: PENG CACERES MD DATE OF SERVICE: 09/05/20 Case Management Discharge Planning Summary COMMENTS ENTERED DATE: 09/05/20 13:46 CT COMMENT TYPE: Discharge Planning REVIEWER: Ayleen Lui CM called [facility] to initiate request for transfer. CM spoke with Trinidad at [facility]. Faxed face sheet as requested. Awaiting determination. ENTERED DATE: 09/05/20 13:32 CT COMMENT TYPE: Discharge Planning REVIEWER: Ayleen Lui CM informed to initiate request for Transfer to outside hospital for LEAD SOFTWARE TESTER/ONC. Spoke with SALEEM Ellison, about transfer. States he has discussed this at length with patient and she is aware. CM called [facility] about transfer. Faxed face sheet as requested. Awaiting determination. Scot informed CM that [facility] just called him about patient and states they would put her on the list for transfer but they don't have any beds at this time. DCP REVIEW SUMMARY ANTICIPATED D/C DATE: EXPECTED LOS : CASE STATUS: DCP Initiated INITIAL REVIEW: 09/04/2020 INITIAL REVIEWER: Ayleen Lui FINAL DISCHARGE DISPOSITION: : FINAL REVIEWER: FINAL REVIEW DATE: [facility] Focus Questions & Answers QUESTION: ANSWER : PATIENT: ABDIFATAH WASHINGTON ENCOUNTER: [id number] MEDICAL RECORD#: [id number] ADMISSION DATE: 09/04/2020 DISCHARGE DATE: ATTENDING MD: PENG WALLER : AGE: 60 MARITAL STATUS: D DC PLAN ID: [id number] FACILITY: [facility] PRINTED ON: 09/05/20 13:56 CT All edits/amendments must be made on the electronic document DICTATION DATE: 09/05/20 1354 WASTE SALVAGER: SAMEERA 09/05/20 9242 RPT#: [id number] DC DATE: STATUS: ADM IN [facility] [address] [place] [address] END OF REPORT
--- NOTE | 2020-09-05 14:45 | NUR ---
NEW IV STARTED TO LEFT HAND FOR BLOOD TRANSFUSION. 22G, 1 STICK.
[2020-09-05 17:15] LABS: HEMOGLOBIN 10.1 g/dL (12-16)
--- NOTE | 2020-09-05 20:00 | NUR ---
REPORT RECEIVED. PT A&O, UP IN BED WITH SISTER AT BEDSIDE. NO S/S OF DISTRESS OBSERVED. RR EVEN & UNLABORED ON RA. CAF 97 ON TELE. IV L HAND PATENT, SL, SWAB CAPS IN USE. BED LOCKED AND LOWERED, CL IN REACH. ASSESSMENT COMPLETE. WILL CONT POC.
[2020-09-06] VITALS (7 sets, daily range): BP systolic 99–122; BP diastolic 50–74
[2020-09-06 06:47] LABS: BASOPHILS 0.5 % (0-2); EOSINOPHILS 2.2 % (0-7); HEMATOCRIT 30.3 % (36.0-48.0); HEMOGLOBIN 10.2 g/dL (12-16); LYMPHOCYTES 21.4 % (15-50); MCH 27.2 pg (26.0-34.0); MCHC 33.5 g/dL (31.0-37.0); MEAN PLATELET VOLUME 7.9 fL (7.4-10.4); MONOCYTES 6.4 % (2-11); NEUTROPHILS 69.5 % (40-80); PLATELET COUNT 268 10x3/uL (130-400); RDW 15.2 % (11.5-14.5); WBC 8.3 10x3/uL (4.8-10.8)
[2020-09-06 06:50] LABS: RBC 3.74 10x6/uL (4.00-5.40)
[2020-09-06 07:07] LABS: ANION GAP 9.4 mmol/L (8-16); BILIRUBIN - TOTAL 0.49 mg/dL (0.2-1.3); CARBON DIOXIDE 28.7 mmol/L (21.0-32.0); POTASSIUM - SERUM 3.1 mmol/L (3.5-5.1); PROTEIN - SERUM 6.2 g/dL (6.4-8.2)
--- NOTE | 2020-09-06 07:15 | NUR ---
RECEIVE SHIFT REPORT. RESTING IN BED WITH EYES CLOSED. AROUSES TO VOICE. DENIES ANY NEEDS AT THIS TIME. NPO SINCE MIDNIGHT FOR PROCEDURE TODAY. WILL CONTINUE POC AND SAFETY PRECAUTIONS.
--- NOTE | 2020-09-06 08:46 | NUR ---
DOWN TO PROCEDURE.
--- NOTE | 2020-09-06 12:41 | MORECARE ---
CASE MANAGEMENT DISCHARGE SUMMARY PATIENT: ABDIFATAH WASHINGTON UNIT: [id number] ADM DATE: 09/04/20 AGE: 60 : 56 SEX: F ROOM/BED: D.2123 AUTHOR: WILLIAM GARCÍA PHYSICIAN: REFERRING PHYSICIAN: PENG CACERES MD DATE OF SERVICE: 09/06/20 Case Management Discharge Planning Summary COMMENTS ENTERED DATE: 09/05/20 13:46 CT COMMENT TYPE: Discharge Planning REVIEWER: Ayleen Lui CM called [facility] to initiate request for transfer. CM spoke with Trinidad at [facility]. Faxed face sheet as requested. Awaiting determination. ENTERED DATE: 09/05/20 13:32 CT COMMENT TYPE: Discharge Planning REVIEWER: Ayleen Lui CM informed to initiate request for Transfer to outside hospital for BUSINESS INVESTOR/ONC. Spoke with SALEEM Ellison, about transfer. States he has discussed this at length with patient and she is aware. CM called [facility] about transfer. Faxed face sheet as requested. Awaiting determination. Scot informed CM that [facility] just called him about patient and states they would put her on the list for transfer but they don't have any beds at this time. DCP REVIEW SUMMARY ANTICIPATED D/C DATE: EXPECTED LOS : CASE STATUS: DCP Initiated INITIAL REVIEW: 09/04/2020 INITIAL REVIEWER: Ayleen Lui FINAL DISCHARGE DISPOSITION: : FINAL REVIEWER: FINAL REVIEW DATE: NMP Focus Questions & Answers QUESTION: ANSWER : PATIENT: ABDIFATAH WASHINGTON ENCOUNTER: [id number] MEDICAL RECORD#: [id number] ADMISSION DATE: 09/04/2020 DISCHARGE DATE: ATTENDING MD: PENG WALLER : AGE: 60 MARITAL STATUS: D DC PLAN ID: [id number] FACILITY: [facility] PRINTED ON: 09/06/20 12:41 CT All edits/amendments must be made on the electronic document DICTATION DATE: 09/06/20 1241 BACK TENDER INSULATION BOARD: SAMEERA 09/06/20 1241 RPT#: [id number] DC DATE: STATUS: ADM IN [facility] [address] [place] [address] END OF REPORT
--- NOTE | 2020-09-06 19:15 | NUR ---
RECEIVED REPORT, WILL ASSUME CARE OF PT, SITTING IN CHAIR, DENIES ANY NEEDS AT THIS TIME, CALL LIGHT IN REACH, WILL CONTINUE PLAN OF CARE
--- NOTE | 2020-09-06 19:45 | NUR ---
[facility] CALL WANTING TO SPEAK TO LACQUER SPRAYER TO SEE IF PT STILL NEEDS BED
--- NOTE | 2020-09-07 01:00 | NUR ---
I have reviewed this patient and I concur with the Shift Assessment completed by the Licensed Practical Nurse today this shift.
[2020-09-07 05:21] VITALS: BP 120/65
[2020-09-07 06:22] LABS: BASOPHILS 0.4 % (0-2); EOSINOPHILS 2.2 % (0-7); HEMATOCRIT 28.3 % (36.0-48.0); HEMOGLOBIN 9.3 g/dL (12-16); LYMPHOCYTES 23.8 % (15-50); MCH 27.3 pg (26.0-34.0); MCHC 32.9 g/dL (31.0-37.0); MCV 82.9 fL (80.0-100.0); MEAN PLATELET VOLUME 7.7 fL (7.4-10.4); MONOCYTES 7.1 % (2-11); NEUTROPHILS 66.5 % (40-80); PLATELET COUNT 216 10x3/uL (130-400); RBC 3.41 10x6/uL (4.00-5.40); RDW 15.8 % (11.5-14.5); WBC 6.3 10x3/uL (4.8-10.8)
[2020-09-07 06:50] LABS: ALBUMIN 2.6 g/dL (3.4-5.0); BILIRUBIN - TOTAL 0.34 mg/dL (0.2-1.3); CALCIUM 7.5 mg/dL (8.5-10.1); CARBON DIOXIDE 32.1 mmol/L (21.0-32.0); PROTEIN - SERUM 5.6 g/dL (6.4-8.2)
[2020-09-07 06:52] LABS: POTASSIUM - SERUM 4.1 mmol/L (3.5-5.1)
[2020-09-07 08:38] VITALS: BP 99/52
[2020-09-07] MEDS ORDERED: LOVENOX40 MG/0.4 SC (10:19)
--- NOTE | 2020-09-07 11:38 | NUR ---
SPOKE WITH PT RE RX FOR LOVENOX AND HER [facility]AM[facility] CLOSES AT 1PM. SHE CALLED AND WILL HAVE SOMEONE PULP OPERATOR BEFORE THEN. SHE REPORTS SHE DOES NOT HAVE SOTALOL RX. CALLED TO [facility], SPOKE WITH SCOTTY, PHARMACIST.
--- NOTE | 2020-09-07 12:54 | NUR ---
PROVIDED VERBAL AND WRITTEN DISCHARGE TEACHING TO PT, WHO VERBALIZED UNDERSTANDING REGARDING TEACHING. D/C LT HAND AND RT WRIST IV WITH CATHETER TIP INTACT. HEART MONITOR REMOVED AND TAKEN TO TO ELECTRICIAN FRONT. PT READY FOR WHEELCHAIR, CONTACTED TRANSPORT TO WHEEL PT OUT.
--- NOTE | 2020-09-07 14:02 | NUR ---
PT LEFT UNIT VIA WHEELCHAIR, WITH ALL BELONGINGS, NAD NOTED.
--- NOTE | 2020-09-07 19:48 | MORECARE ---
CASE MANAGEMENT DISCHARGE SUMMARY PATIENT: ABDIFATAH WASHINGTON UNIT: [id number] ADM DATE: 09/04/20 AGE: 60 : 56 SEX: F ROOM/BED: D.2123 AUTHOR: RAQUEL,DOC PHYSICIAN: REFERRING PHYSICIAN: PENG CACERES MD DATE OF SERVICE: 09/07/20 Case Management Discharge Planning Summary COMMENTS ENTERED DATE: 09/07/20 19:46 CT COMMENT TYPE: Discharge Planning REVIEWER: Garry Ward CM met with patient to complete DC plan and to evaluate needs. Patient lives independently with family and stated that her person to notify is her sister, Aurea Turcios, . Patient stated that her home is safe and has electricity and running water. Patient stated that the home has 3 steps to enter and she is able to manage the steps without difficulty. Patient stated that she has no problems paying for medications and she fills her medications at [facility]. Patient stated that her primary care physician is Dr. Tenorio. At discharge, the patient plans to return home and feels this is a safe discharge. CM discussed availability of home health, rehab services, and medical equipment. Patient declined HHS, SNF, IPR, and DME. Patient denied problems with mobility and denies having mobility equipment. Patient voiced no other needs at this time and is satisfied with DC plan. CM will continue to follow and will assist as needed with dc plans/needs. ENTERED DATE: 09/05/20 13:46 CT COMMENT TYPE: Discharge Planning REVIEWER: Ayleen Lui CM called [facility] to initiate request for transfer. CM spoke with Trinidad at [facility]. Faxed face sheet as requested. Awaiting determination. ENTERED DATE: 09/05/20 13:32 CT COMMENT TYPE: Discharge Planning REVIEWER: Ayleen Lui CM informed to initiate request for Transfer to outside hospital for TIE PRESSER/ONC. Spoke with SALEEM Ellison, about transfer. States he has discussed this at length with patient and she is aware. CM called [facility] about transfer. Faxed face sheet as requested. Awaiting determination. Scot informed CM that [facility] just called him about patient and states they would put her on the list for transfer but they don't have any beds at this time. DCP REVIEW SUMMARY ANTICIPATED D/C DATE: 09/07/2020 EXPECTED LOS : 3 CASE STATUS: DCP Initiated INITIAL REVIEW: 09/04/2020 INITIAL REVIEWER: Ayleen Lui FINAL DISCHARGE DISPOSITION: : FINAL REVIEWER: FINAL REVIEW DATE: DCP Focus Questions & Answers DCP Evaluation QUESTION: ANSWER Patient gives permission to discuss discharge plans with: (name, relationship and number) : Aurea orourke, Patient's ability to cope with chronic illness : d. No chronic illness Patient's current cognitive status: : *Oriented to person, place, situation, time and present Family / Caregiver's ability to cope with chronic illness: : a. Adequate (ability to meet patient's medical needs, ensures patient attends medical appts.) Patient and/or caregiver agree upon recommended discharge plan? : Yes Physical Status: : Independent with ADL's Family / Caregiver's ability to cope with chronic illness: : a. Adequate (ability to meet patient's medical needs, ensures patient attends medical appts.) Functional screen assessment: : Basic needs can adequately be met by self Does the patient have the ability to pay for or attain post discharge needs / services? : Yes Living Arrangements: : Home with Extended Family Is there a likelihood that the patient will require additional services to return to the preadmission environment? : No Equipment needed for post hospitalization: : None Baseline cognitive status: : *Oriented to person, place, situation, time and present Patient with capacity for self-care or can be cared for in same environment as prior to hospitalization? : Yes Physical environment modification needed / anticipated for discharge: : No Medication Management: : Patient states can afford medications Medication Management: : Patient states can read and understand medication labels Pharmacy name(s): : [facility] Does Patient have transportation to get home and to follow-up medical appointments when discharged from the hospital? : Yes Would patient like to participate in any Care Coordination programs (if applicable): : Not applicable Does the patient have electricity at home? : Yes Does the patient have running water in their house? : Yes Equipment in use: : None Mental health screen: : No mental health history DCP Re-evaluation QUESTION: ANSWER Would patient like to participate in any Care Coordination programs (if applicable): : Not applicable PATIENT: ABDIFATAH WASHINGTON ENCOUNTER: [id number] MEDICAL RECORD#: [id number] ADMISSION DATE: 09/04/2020 DISCHARGE DATE: 09/07/2020 ATTENDING MD: PENG WALLER : AGE: 60 MARITAL STATUS: D DC PLAN ID: [id number] FACILITY: [facility] PRINTED ON: 09/07/20 19:48 CT All edits/amendments must be made on the electronic document DICTATION DATE: 09/07/201947 FLIGHT ENGINEER MANAGER: SAMEERA 09/07/201947 RPT#: [id number] DC DATE:09/07/20 STATUS: DIS IN [facility] [address] [place] [address] END OF REPORT
--- NOTE | 2020-09-09 16:27 | MORECARE ---
CASE MANAGEMENT DISCHARGE SUMMARY PATIENT: ABDIFATAH WASHINGTON UNIT: [id number] ADM DATE: 09/04/20 AGE: 60 : 56 SEX: F ROOM/BED: D.2123 AUTHOR: RAQUEL,DOC PHYSICIAN: REFERRING PHYSICIAN: PENG CACERES MD DATE OF SERVICE: 09/09/20 Case Management Discharge Planning Summary COMMENTS ENTERED DATE: 09/07/20 19:46 CT COMMENT TYPE: Discharge Planning REVIEWER: Garry Ward CM met with patient to complete DC plan and to evaluate needs. Patient lives independently with family and stated that her person to notify is her sister, Aurea Turcios, . Patient stated that her home is safe and has electricity and running water. Patient stated that the home has 3 steps to enter and she is able to manage the steps without difficulty. Patient stated that she has no problems paying for medications and she fills her medications at [facility]. Patient stated that her primary care physician is Dr. Tenorio. At discharge, the patient plans to return home and feels this is a safe discharge. CM discussed availability of home health, rehab services, and medical equipment. Patient declined HHS, SNF, IPR, and DME. Patient denied problems with mobility and denies having mobility equipment. Patient voiced no other needs at this time and is satisfied with DC plan. CM will continue to follow and will assist as needed with dc plans/needs. ENTERED DATE: 09/05/20 13:46 CT COMMENT TYPE: Discharge Planning REVIEWER: Ayleen Lui CM called [facility] to initiate request for transfer. CM spoke with Trinidad at [facility]. Faxed face sheet as requested. Awaiting determination. ENTERED DATE: 09/05/20 13:32 CT COMMENT TYPE: Discharge Planning REVIEWER: Ayleen Lui CM informed to initiate request for Transfer to outside hospital for [employer]/ON[employer]. Spoke with SALEEM Ellison, about transfer. States he has discussed this at length with patient and she is aware. CM called [facility] about transfer. Faxed face sheet as requested. Awaiting determination. Scot informed CM that [facility] just called him about patient and states they would put her on the list for transfer but they don't have any beds at this time. DCP REVIEW SUMMARY ANTICIPATED D/C DATE: 09/07/2020 EXPECTED LOS : 3 CASE STATUS: DCP Initiated INITIAL REVIEW: 09/04/2020 INITIAL REVIEWER: Ayleen Lui FINAL DISCHARGE DISPOSITION: : FINAL REVIEWER: FINAL REVIEW DATE: DCP Focus Questions & Answers DCP Evaluation QUESTION: ANSWER Patient and/or caregiver agree upon recommended discharge plan? : Yes Family / Caregiver's ability to cope with chronic illness: : a. Adequate (ability to meet patient's medical needs, ensures patient attends medical appts.) Patient's current cognitive status: : *Oriented to person, place, situation, time and present Patient's ability to cope with chronic illness : d. No chronic illness Patient gives permission to discuss discharge plans with: (name, relationship and number) : sisterAurea, Does the patient have the ability to pay for or attain post discharge needs / services? : Yes Functional screen assessment: : Basic needs can adequately be met by self Family / Caregiver's ability to cope with chronic illness: : a. Adequate (ability to meet patient's medical needs, ensures patient attends medical appts.) Physical Status: : Independent with ADL's Equipment needed for post hospitalization: : None Is there a likelihood that the patient will require additional services to return to the preadmission environment? : No Living Arrangements: : Home with Extended Family Patient with capacity for self-care or can be cared for in same environment as prior to hospitalization? : Yes Baseline cognitive status: : *Oriented to person, place, situation, time and present Physical environment modification needed / anticipated for discharge: : No Medication Management: : Patient states can read and understand medication labels Medication Management: : Patient states can afford medications Pharmacy name(s): : [facility] Does Patient have transportation to get home and to follow-up medical appointments when discharged from the hospital? : Yes Would patient like to participate in any Care Coordination programs (if applicable): : Not applicable Does the patient have electricity at home? : Yes Does the patient have running water in their house? : Yes Equipment in use: : None Mental health screen: : No mental health history DCP Re-evaluation QUESTION: ANSWER Would patient like to participate in any Care Coordination programs (if applicable): : Not applicable PATIENT: ABDIFATAH WASHINGTON ENCOUNTER: [id number] MEDICAL RECORD#: [id number] ADMISSION DATE: 09/04/2020 DISCHARGE DATE: 09/07/2020 ATTENDING MD: PENG WALLER : AGE: 60 MARITAL STATUS: D DC PLAN ID: [id number] FACILITY: [facility] PRINTED ON: 09/09/20 16:27 CT All edits/amendments must be made on the electronic document DICTATION DATE: 09/09/201626 HEAD TRACK COACH: SAMEERA 09/09/201626 RPT#: [id number] DC DATE:09/07/20 STATUS: DIS IN [facility] [address] [place] [address] END OF REPORT
== END 2020-09-07 14:03 | disposition home or self-care (01) | DRG 760 ==
LOC: D.ER 13:10 → D.M2 15:00 → D.EDHOLD 15:00 → D.M2 16:56
PROVIDERS: Family Medicine; Obstetrics & Gynecology; ADMIT Family Medicine; ATTEND Family Medicine
PROC: 0UJD8ZZ Inspection of Uterus and Cervix, Via Natural or Artificial Opening Endoscopic (ICD-10-PCS; principal; 2020-09-06 09:15)
DX: N95.0 Postmenopausal bleeding (principal); Z68.43 Body mass index [BMI] 50.0-59.9, adult; D62 Acute posthemorrhagic anemia; I48.91 Unspecified atrial fibrillation; I10 Essential (primary) hypertension; E66.01 Morbid (severe) obesity due to excess calories; K21.9 Gastro-esophageal reflux disease without esophagitis; Z79.01 Long term (current) use of anticoagulants; Z99.81 Dependence on supplemental oxygen; J45.909 Unspecified asthma, uncomplicated; F32.9 Major depressive disorder, single episode, unspecified; E78.5 Hyperlipidemia, unspecified